=== PATIENT | female | born 1985 | race Caucasian/White ===

== ENCOUNTER 2019-04-17 08:39 | Emergency (ER) | payer BC ==
--- NOTE | 2019-04-17 08:53 | ED ---
- HPI Summary HPI Summary: The patient is a 33 y/o F presenting to [facility] with a chief complaint of hyperemesis onset at 0900 yesterday 04/16/2019. She reports that she is currently 13 weeks , and she has lost 12lbs in the first trimester secondary to 3 previous episodes of hyperemesis. She has been using Zofran and Reglan to little relief. She states that she was given 25mg Phenergan and Reglan last time she was in the hospital. She denies any abdominal cramping, vaginal bleeding, or vaginal discharge. Currently, her symptoms are rated 5/10 in severity. Her has otherwise been normal without complications. LNMP : January 11, 2019. LANDSCAPE DESIGNER is Dr. Darion Weems ([place]). A0. PMHx: cyst removal. Nonsmoker, no EtOH, no substance use. Medications reviewed. Allergies noted. - History of Current Complaint Chief Complaint: EDNauseaVomitDiarrh Stated Complaint: 13 WEEKS PREG/CANT STOP VOMITING PER PT Hx Obtained From: Patient Chief Complaint: Other: - hyperemesis Onset/Duration: Started Hours Ago - one day, Still Present Timing: Constant, Lasting Hours Severity: Moderate Current Severity: Moderate Pain Intensity: 5 Location of Pain: None Character: None Aggravating Factors: Nothing Alleviating Factors: Other: - Reglan and Zofran to little relief Associated Signs and Symptoms: Positive: Nausea, Other: - Negative: abdominal cramping. Negative: Vaginal Bleeding or Discharge - Assessment Hx Now: Yes Hx : 1 Hx Para: 0 Hx Last Menstrual Period: 01/11/19 - Allergies/Home Medications Allergies/Adverse Reactions: Allergies Allergy/AdvReac Type Severity Reaction Status Date / Time No Known Allergies Allergy Verified 04/17/19 08:41 Home Medications: Home Medications Metoclopramide TAB* [Reglan TAB*] 10 mg PO Q6H PRN 04/17/19 [History Confirmed 04/17/19] Ondansetron TAB* [Zofran 4 MG Tab*] 8 mg PO Q6H PRN 04/17/19 [History Confirmed 04/17/19] Vit No.129/Iron/Folic [ One Daily Tablet] 1 tab PO DAILY [History Confirmed 04/17/19] PMH/Surg Hx/FS Hx/Imm Hx Endocrine/Hematology History: Denies: Hx Diabetes Cardiovascular History: Denies: Hx Hypercholesterolemia, Hx Hypertension - Surgical History Surgical History: Yes Surgery Procedure, Year, and Place: cyst removal Infectious Disease History: No Infectious Disease History: Denies: Traveled Outside the [place] in Last 30 Days - Family History Known Family History: Negative: Cardiac Disease, Hypertension, Diabetes - Social History Alcohol Use: None Alcohol Amount: none since Hx Substance Use: No Substance Use Type: Reports: None Hx Tobacco Use: No Smoking Status (MU): Never Smoked Tobacco Review of Systems Positive: Vomiting, Nausea. Negative: Abdominal Pain Positive: other - Negative: vaginal bleeding.. Negative: discharge All Other Systems Reviewed And Are Negative: Yes Physical Exam - Summary Physical Exam Summary: VITAL SIGNS: Reviewed. GENERAL: Patient is a well-developed and nourished female who is lying comfortable in the stretcher. Patient is not in any acute respiratory distress. HEAD AND FACE: No signs of trauma. No ecchymosis, hematomas or skull depressions. No sinus tenderness. EYES: PERRLA, EOMI x 2, No injected conjunctiva, no nystagmus. EARS: Hearing grossly intact. Ear canals and tympanic membranes are within normal limits. MOUTH: Dry oral mucosa but oropharynx is otherwise within normal limits. NECK: Supple, trachea is midline, no adenopathy, no JVD, no carotid bruit, no c- spine tenderness, neck with full ROM. CHEST: Symmetric, no tenderness at palpation. LUNGS: Clear to auscultation bilaterally. No wheezing or crackles. CVS: Regular rate and rhythm, S1 and S2 present, no murmurs or gallops appreciated. ABDOMEN: Soft, non-tender. No signs of distention. No rebound, no guarding, and no masses palpated. Bowel sounds are normal. EXTREMITIES: FROM in all major joints, no edema, no cyanosis or clubbing. NEURO: Alert and oriented x 3. No acute neurological deficits. Speech is normal and follows commands. SKIN: Dry and warm. - Physical Exam Triage Information Reviewed: Yes Vital Signs Reviewed: Yes Diagnostics - Vital Signs Vital Signs Temp Pulse Resp BP Pulse Ox 04/17/19 08:39 99.1 F 86 16 129/71 98 - Laboratory Result Diagrams: 04/17/19 09:00 04/17/19 09:00 Lab Statement: Any lab studies that have been ordered have been reviewed, and results considered in the medical decision making process. Re-Evaluation - Re-Evaluation First Eval Re-Evaluation Time: 09:40 Change: Improved Comment: Her symptoms have improved. I discussed results with the patient thus far. Second Eval Re-Evaluation Time: 11:17 Change: Improved Comment: She is feeling better and tolerating PO. Course/Dx - Course Assessment/Plan: Patient is a 33 y/o F who is currently 13 weeks gravid (first ) with chief complaint of hyperemesis for the last 24 hours without much relief from prescribed Reglan and Zofran. Denies abdominal cramping, vaginal bleeding, or vaginal discharge. Blood work without any significant abnormality except for WBCs of 12 and CRP of 10. Urinalysis with positive 1+ protein and 2+ ketones. In the ED course the patient was given Reglan however the patient continued to have nausea therefore the patient was given Zofran. After these medications, the symptoms have improved. The patient is tolerating oral intake without any nausea or vomiting. Therefore, the patient will be discharged home with follow-up with PCP. The patient is hemodynamically stable alert and oriented 3. - Diagnoses Provider Diagnoses: Hyperemesis, 1 Discharge ED - Sign-Out/Discharge Documenting (check all that apply): Patient Departure - Patient will be discharged home. Patient Received Moderate/Deep Sedation with Procedure: No - Discharge Plan Condition: Improved Disposition: HOME Patient Education Materials: Hyperemesis Gravidarum (ED) Referrals: [facility] [Outside] - 3 Days Additional Instructions: Follow up with your LANDSCAPE DESIGNER when you return home. Return to the emergency department for any new or worsening symptoms. - Billing Disposition and Condition Condition: IMPROVED Disposition: Home - Attestation Statements Document Initiated by Alonso: Yes Documenting Scribe: Cherie Arceo Provider For Whom Alonso is Documenting (Include Credential): Dr. Onur Goyal MD Scribe Attestation: Cherie Culver scribed for Dr. Onur Goyal MD on 04/18/19 at 1823. Scribe Documentation Reviewed: Yes Provider Attestation: The documentation as recorded by the Cherie moody accurately reflects the service I personally performed and the decisions made by me, Dr. Onur Goyal MD Status of Scribe Document: Viewed
[2019-04-17] MEDS ORDERED: Metoclopramide IV* 5 MG/ML 2 ML VIAL IV ONE (08:54)
[2019-04-17] MEDS: NS 0.9% 1000 ML** 2,000 ML IV ONE (09:03)
[2019-04-17 09:10] LABS: ABS Basophils 0.1 10^3/ul (0-0.2); ABS Eosinophils 0.1 10^3/ul (0-0.6); ABS Lymphocytes 1.6 10^3/ul (1.0-4.8); ABS Monocytes 0.5 10^3/ul (0-0.8); ABS Neutrophils 9.7 10^3/ul (1.5-7.7); Eosinophil % 0.8 %; Hematocrit 36 % (35-47); Hemoglobin 12.4 g/dL (12.0-16.0); Lymphocyte % 13.3 %; Mean Corpuscular HGB Conc 34 g/dL (31-36); Mean Corpuscular Hemoglobin 32 pg (27-31); Mean Corpuscular Volume 93 fL (80-97); Mean Platelet Volume 6.9 fL (7.4-10.4); Nucleated Red Blood Cells % 0.1; Platelet Count 354 10^3/uL (150-450); Red Blood Count 3.91 10^6 /uL (3.70-4.87); Red Cell Distribution Width 12 % (10-15)
[2019-04-17] MEDS ORDERED: Ondansetron INJ* 2 MG/ML VIAL IV ONE (09:22)
[2019-04-17 09:34] LABS: Urine Appearance Clear; Urine Bacteria 1+ (Absent); Urine Bilirubin Negative (Negative); Urine Blood Negative (Negative); Urine Color Yellow; Urine Glucose Negative (Negative); Urine Ketones 2+ (Negative); Urine Nitrite Negative (Negative); Urine Protein 1+(30 mg/dL) (Negative); Urine Red Blood Cell 1+(3-5/hpf) (Absent); Urine Specific Gravity 1.028 (1.010-1.030); Urine Squamous Epithelial Cell Present (Absent); Urine Urobilinogen Negative (Negative); Urine White Blood Cell Trace(0-5/hpf) (Absent)
[2019-04-17 09:35] LABS: Albumin 3.9 g/dL (3.2-5.2); Albumin/Globulin Ratio 1.6 (1-3); BUN/Creatinine Ratio 10.8 (8-20); C Reactive Protein 10.04 mg/L (<8.01); Calcium 9.2 mg/dL (8.6-10.3); EGFR African American 128.6 (>60); EGFR Non-African American 106.3 (>60); Globulin 2.5 g/dL (2-4); Potassium 3.5 mmol/L (3.5-5.0); Total Bilirubin 0.8 mg/dL (0.2-1.0); Total Protein 6.4 g/dL (6.4-8.9)
[2019-04-17 11:42] VITALS: BP 106/61
== END 2019-04-17 11:38 | disposition home or self-care (01) ==
LOC: ED 08:39
DX: O21.0 Mild hyperemesis gravidarum (principal); Z3A.13 13 weeks gestation of pregnancy
CPT/HCPCS: 36415; 80053; 81003; 81015; 83690; 84702; 85025; 86140; 87086; 96361; 96374; 96375; 99282; J2405; J2765